=== PATIENT | female | born 1975 | race Hispanic/Latino ===

== ENCOUNTER 2024-12-20 07:34 | Emergency (ER) | payer SELFPAY ==
[~2024-12-20] VITALS: Ht 165.1 cm; Wt 77.1 kg
[2024-12-20 08:09] LABS: RAPID GROUP A STREP negative (NEGATIVE)
[2024-12-20 08:18] LABS: INFLUENZA TYPE B Negative For Type B (NEGATIVE)
[2024-12-20 08:24] LABS: COVID19 (SARS ANTIGEN RAPID) PRESUMPTIVE NEGATIVE (NEGATIVE); INFLUENZA TYPE A Positive For Type A (NEGATIVE)
[2024-12-20] MEDS ORDERED: OSEL75 PO (08:36)
--- NOTE | 2024-12-20 08:36 | ERN ---
ED Note History of Present Illness Stated Complaint: FEVER, COUGH, CONGESTION Chief Complaint: Cough Time Seen by MD: 07:38 Dictation: 49-year-old female presents to the ED for evaluation of fever onset two days ago. Patient reports cough, nasal congestion and sore throat, but denies any vomiting diarrhea or any other associated symptoms at this time. Patient took Tylenol and Motrin at 6:00 a.m.. Allergies: Coded Allergies: No Known Allergies (Unverified Allergy, Unknown, 12/20/24) Home Meds Active Scripts Oseltamivir Phosphate (Tamiflu) 75 Mg Cap, 75 MG PO BID for 5 Days, #10 CAP Prov:SHANIKA WORKMAN MD 12/20/24 Past Medical History Past Medical History: Arthritis, Other Additional Past Medical Hx: CHRONIC PAIN Surgical History: None LMP: Sep 04, 2024 Review of System Dictation Constitutional: Positive for fever negative for chills, and weight loss Eyes: Negative for injury, pain,redness, and discharge ENT: Positive for nasal congestion and sore throat Negative for injury,pain or swelling Cardiovascular: Negative for chest pain, palpitations, and edema Respiratory: Positive for cough Negative for shortness of breath and wheezing, Abdomen/GI: Negative for abdominal pain, nausea, vomiting, diarrhea, and const ipation Back: Negative for injury and pain : Negative for injury, bleeding and discharge MS/Extremity: Negative for injury and deformity Skin: Negative for rash, and discoloration Neuro: Negative for headache, weakness, numbness, tingling, and seizure Psych: Negative for suicide ideation, homicidal ideation, and hallucinations Initial Vital Sign VS Vital Signs Date Time Temp Pulse Resp B/P (MAP) Pulse Ox O2 Delivery O2 Flow Rate FiO2 12/20/24 07:36 98.8 86 16 116/73 96 Room Air 0 12/20/24 07:44 21 Physical Exam Dictation General: awake, alert, NAD Head/Face: Normocephalic, atraumatic Eyes: PERRL, EOMI, vision at baseline ENT: oral cavity clear, TMs clear, nasal congestion Neck: Trachea midline, supple, no nuchal rigidity Cardiovascular: RRR, normal S1/S2, No MRGs, no JVD Respiratory: CTAB, no respiratory distress, No rales or wheezes Abdomen: Soft, non-tender, non-distended, normal bowel sounds, no guarding or rebound. Skin: Warm, dry, normal turgor, no rash MS/Extremity: Pulses equal, no cyanosis, neurovascular intact, FROM Neuro: COAx4, GCS 15, strength 5/5, CN 2-12 intact, normal cerebellar exam, normal gait, Psych: Normal behavior, mood, and affect normal Results (Laboratory/Radiology) Laboratory/Radiology Laboratory Tests Test 12/20/24 07:42 Influenza Type A Antigen Positive For Type A Influenza Type B Antigen Negative For Type B SARS-CoV-2 Antigen (Rapid) PRESUMPTIVE NEGATIVE Group A Streptococcus Rapid negative (NEGATIVE) Labs Reviewed?: Yes ED Course ED Course Orders Procedure Category Date Status Time Influenza Type A & B, LAB 12/20/24 Complete Rapid 07:38 Rapid (Group A Strep) LAB 12/20/24 Complete 07:38 Covid19 (Sars Antigen LAB 12/20/24 Complete Rapid) 07:38 Chest 1vw RAD 12/20/24 Resulted 07:39 Dexamethasone 4mg/Ml PHA 12/20/24 Complete 1ml Vial (Dexametha 09:00 Current Medications Medications (Trade) Dose Ordered Sig/Shoshana Route PRN Reason Start Time Stop Time Status Last Admin Dose Admin Dexamethasone Sodium Phosphate (dexaMETHasone 4MG/ML 1ML VIAL) 10 mg ONCE ONCE IM 12/20/24 09:00 12/20/24 09:01 DC 12/20/24 08:41 Vital Signs Date Time Temp Pulse Resp B/P (MAP) Pulse Ox O2 Delivery O2 Flow Rate FiO2 12/20/24 08:55 98.8 80 16 111/79 97 Room Air* 0 21 12/20/24 07:44 98.8 86 16 116/73 96 Room Air* 0 21 12/20/24 07:36 98.8 86 16 116/73 96 Room Air 0 Medical Decision Making MDM MDM: Differential diagnosis: Viral syndrome, URI, influenza, strep Risk of complication and/or morbidity or mortality of patient management: None Medications-Per medication reconciliation Need for hospitalization: Patient does not meet criteria for hospitalization. Need for emergency major/minor surgery: No There are no social concerns with this patient. Prescription drug management Prescriptions will include symptomatic care I independently interpreted the test that were performed, results were reviewed by me and considered findings on radiology if ordered. DX & DISP Disposition: Discharge Departure Impression: Primary Impression: Influenza A Additional Impression: Acute URI Condition: Stable Scripts Oseltamivir Phosphate (Tamiflu) 75 Mg Cap 75 MG PO BID for 5 Days, #10 CAP Prov: SHANIKA WORKMAN MD 12/20/24 Referrals: NONE (PCP) SHANIKA WORKMAN MD Dec 20, 2024 08:36
[2024-12-20] MEDS: dexaMETHasone SOD PHOSPHATE 4 MG/ML 1ML VIAL IM ONE (08:41)
[2024-12-20 08:55] VITALS: BP 111/79; PULSE 80; RESP 16; TEMP 98.8; O2SAT 97
--- NOTE | 2024-12-20 09:19 | HMCIMG ---
CHEST 1VW REASON: cough COMPARISON: None. FINDINGS: Single view of the chest was obtained. Lungs are clear. Heart size is normal. There is no pulmonary vascular congestion. Mediastinum and bony thorax appear unremarkable. IMPRESSION: 1. Normal single view chest x-ray.
== END 2024-12-20 08:59 | disposition home or self-care (01) ==
LOC: EDH 07:34
DX: J10.1 Influenza due to other identified influenza virus with other respiratory manifestations (principal); Z20.822 Contact with and (suspected) exposure to COVID-19; M19.90 Unspecified osteoarthritis, unspecified site; G89.29 Other chronic pain
CPT/HCPCS: 99284; 71045; 87426; 87880; 87804 ×2; 96372; J1100; 99283